=== PATIENT | female | born 1975 | race Two or more races ===

== ENCOUNTER 2021-08-29 08:39 | Emergency (ER) | payer OTHER ==
[2021-08-29 08:58] VITALS: BP 131/80; PULSE 90; TEMP 97.9; BMI 26.4
[2021-08-29] MEDS ORDERED: predniSONE 20 MG TABLET (UD) PO ONE (10:33)
[2021-08-29] MEDS ORDERED: predniSONE 20 MG TABLET (UD) ONE (10:40)
== END 2021-08-29 11:05 | disposition home or self-care (01) ==
LOC: JERFT 08:39
DX: L50.9 Urticaria, unspecified (principal)
CPT/HCPCS: 99283-25